=== PATIENT | female | born 1945 | race Caucasian/White ===

== ENCOUNTER 2019-03-02 10:34 | Emergency (ER) | payer MEDICARE, OTHER, MEDICAID ==
[2019-03-02 11:23] LABS: ADD MAN DIFF? NO
[2019-03-02 11:27] LABS: WHITE BLOOD COUNT 6.8 10^3/ul (4.8-10.8)
[2019-03-02 11:27] LABS: BASOPHILS % 0.4 % (0.0-2.0); EOSINOPHILS # 0.1 10^3/ul (0.0-0.5); HEMATOCRIT 37.7 % (37.0-47.0); HEMOGLOBIN 11.9 g/dl (12.0-16.0); LYMPHOCYTES # 1.2 10^3/ul (0.8-2.9); MEAN CORPUSCULAR HEMOGLOBIN 27.5 pg (29.0-33.0); MEAN CORPUSCULAR HGB CONC 31.6 g/dl (32.0-37.0); MEAN CORPUSCULAR VOLUME 87.1 fl (82.0-101.0); MEAN PLATELET VOLUME 10.6 fl (7.4-10.4); MONOCYTE # 0.5 10^3/ul (0.3-0.9); MONOCYTES % 7.2 % (0.0-11.0); NEUTROPHILS % 74.3 % (39.0-77.0); PLATELET COUNT 173 10^3/UL (140-415); RED BLOOD COUNT 4.33 10^6/ul (4.20-5.40); RED CELL DISTRIBUTION WIDTH 14.5 % (11.5-14.5)
[2019-03-02 11:31] LABS: INR 1.06; PROTIME 13.9 Sec (11.9-14.9); PT RATIO 1.1
[2019-03-02 11:32] LABS: ANION GAP 6 (5-13); BLOOD UREA NITROGEN 10 mg/dl (7-20); CALCIUM 8.9 mg/dl (8.4-10.2); CARBON DIOXIDE 27 mmol/L (21-31); CHLORIDE 109 mmol/L (97-110); CREATININE 0.66 mg/dl (0.44-1.00); GLUCOSE 121 mg/dl (70-220); POTASSIUM 4.1 mmol/L (3.5-5.1); SODIUM 142 mmol/L (135-144)
[2019-03-02 11:41] LABS: B-TYPE NATRIURETIC PEPTIDE 4160 PG/ML (0-125)
[2019-03-02 11:44] LABS: TROPONIN-I < 0.012 ng/ml (0.000-0.120)
[2019-03-02] MEDS: FUROSEMIDE 20 MG INJ IV (14:29)
== END 2019-03-02 14:36 | disposition home or self-care (01) ==
LOC: E/R 14:36
DX: I11.0 Hypertensive heart disease with heart failure (principal); I50.9 Heart failure, unspecified; R60.0 Localized edema
CPT/HCPCS: 36415; 71045; 80048; 83880; 84484; 85025; 85610; 93005; 96374; 99285-25

== ENCOUNTER 2019-03-29 14:33 | Inpatient (IN) | payer MEDICARE, OTHER ==
[2019-03-29] MEDS: FAMOTIDINE 20 MG INJ IV (16:22)
[2019-03-29] MEDS: ONDANSETRON 4 MG INJ IV (16:22)
[2019-03-29 16:27] LABS: ADD MAN DIFF? NO
[2019-03-29 16:28] LABS: BASOPHILS % 0.2 % (0.0-2.0); EOSINOPHILS % 0.2 % (0.0-7.0); HEMATOCRIT 37.2 % (37.0-47.0); HEMOGLOBIN 11.8 g/dl (12.0-16.0); LYMPHOCYTES # 1.5 10^3/ul (0.8-2.9); LYMPHOCYTES % 14.8 % (15.0-51.0); MEAN CORPUSCULAR HEMOGLOBIN 26.1 pg (29.0-33.0); MEAN CORPUSCULAR HGB CONC 31.7 g/dl (32.0-37.0); MEAN CORPUSCULAR VOLUME 82.3 fl (82.0-101.0); MEAN PLATELET VOLUME 11.2 fl (7.4-10.4); MONOCYTE # 0.8 10^3/ul (0.3-0.9); MONOCYTES % 7.2 % (0.0-11.0); NEUTROPHILS % 77.3 % (39.0-77.0); PLATELET COUNT 227 10^3/UL (140-415); RED BLOOD COUNT 4.52 10^6/ul (4.20-5.40); RED CELL DISTRIBUTION WIDTH 14.6 % (11.5-14.5)
[2019-03-29 16:28] LABS: WHITE BLOOD COUNT 10.4 10^3/ul (4.8-10.8)
[2019-03-29 16:38] LABS: ALANINE AMINOTRANSFERASE 20 IU/L (13-69); ALBUMIN 3.9 g/dl (3.3-4.9); ALKALINE PHOSPHATASE 116 IU/L (42-121); ANION GAP 12 (5-13); ASPARTATE AMINO TRANSFERASE 27 IU/L (15-46); BILIRUBIN,INDIRECT 0.6 mg/dl (0-1.1); BILIRUBIN,TOTAL 0.6 mg/dl (0.2-1.3); BLOOD UREA NITROGEN 15 mg/dl (7-20); CALCIUM 9.1 mg/dl (8.4-10.2); CARBON DIOXIDE 25 mmol/L (21-31); CHLORIDE 108 mmol/L (97-110); CREATININE 0.66 mg/dl (0.44-1.00); GLUCOSE 102 mg/dl (70-220); LIPASE 34 U/L (23-300); POTASSIUM 4.1 mmol/L (3.5-5.1); SODIUM 145 mmol/L (135-144); TOTAL PROTEIN 7.8 g/dl (6.1-8.1)
[2019-03-29 16:49] LABS: TROPONIN-I < 0.012 ng/ml (0.000-0.120)
[2019-03-29 17:01] LABS: ADD UMIC NO; UR ASCORBIC ACID NEGATIVE (NEGATIVE); UR BILIRUBIN (Dip) NEGATIVE (NEGATIVE); UR BLOOD (Dip) NEGATIVE (NEGATIVE); UR CLARITY CLEAR (CLEAR); UR COLOR YELLOW (YELLOW); UR GLUCOSE (Dip) NEGATIVE (NEGATIVE); UR KETONES (Dip) NEGATIVE (NEGATIVE); UR LEUKOCYTE ESTERASE (Dip) NEGATIVE Leu/ul (NEGATIVE); UR NITRITE (Dip) NEGATIVE (NEGATIVE); UR SPECIFIC GRAVITY (Dip) 1.011 (1.003-1.030); UR TOTAL PROTEIN (Dip) NEGATIVE (NEGATIVE); UR UROBILINOGEN (Dip) NEGATIVE (NEGATIVE)
[2019-03-29] MEDS: IOHEXOL 300MG/ML 150 ML BTL (17:24)
[2019-03-29] MEDS: SOD CHLORIDE 0.9% 100 ML (17:24)
[2019-03-29] MEDS: metroNIDAZOLE 500 MG/NS (PMX) 100 ML IVPB ×2 (19:07→23:18)
[2019-03-29] MEDS: morphine 2 MG INJ IV (19:08)
[2019-03-29] MEDS: SOD CHLORIDE 0.9% 1,000 ML IV (19:15)
[2019-03-29 19:19] LABS: INR 1.03; PROTIME 13.6 Sec (11.9-14.9); PT RATIO 1.1
[2019-03-29 19:20] LABS: PARTIAL THROMBOPLASTIN TIME 32.6 Sec (23.0-35.0)
[2019-03-29] MEDS ORDERED: ONDANSETRON 4 MG INJ IV ×5 (19:30→21:00)
[2019-03-29] MEDS ORDERED: ACETAMINOPHEN 325 MG TAB PO ×3 (19:30→20:00)
[2019-03-29] MEDS: CEFTRIAXONE 2 GM/50 ML (PMX) 50 ML IVPB (19:42)
[2019-03-29] MEDS ORDERED: SOD CHLORIDE 0.9% 1,000 ML IV (19:44)
[2019-03-29] MEDS ORDERED: ROCURONIUM 50 MG INJ (20:00)
[2019-03-29] MEDS ORDERED: morphine 2 MG INJ IV ×2 (20:00)
[2019-03-29] MEDS ORDERED: NACL 0.9% 3 ML SYG IV (20:00)
[2019-03-29] MEDS ORDERED: IBUPROFEN 600 MG TAB PO (20:00)
[2019-03-29] MEDS ORDERED: BISACODYL (EC) 5 MG TAB PO (20:00)
[2019-03-29] MEDS ORDERED: PROPOFOL 20 ML (20:00)
[2019-03-29] MEDS ORDERED: DOCUSATE SODIUM 100 MG CAP PO (20:00)
[2019-03-29] MEDS ORDERED: FENTAnyl 50 MCG/ML VIAL (20:00)
[2019-03-29] MEDS ORDERED: MIDAZOLAM 1 MG/ML 2 ML INJ (20:00)
[2019-03-29] MEDS ORDERED: ROPIVACAINE 0.5 % 30 ML VIAL (20:01)
[2019-03-29] MEDS ORDERED: HYDROmorphONE 1 MG/5 ML IV SYRINGE IV ×6 (20:30→21:00)
[2019-03-29] MEDS ORDERED: DIPHENHYDRAMINE 50 MG INJ IV ×2 (20:30→21:00)
[2019-03-29] MEDS ORDERED: MEPERIDINE 25 MG INJ IV ×2 (20:30→21:00)
[2019-03-29] MEDS ORDERED: FENTAnyl 50 MCG/ML VIAL IV ×6 (20:30→21:00)
[2019-03-29] MEDS ORDERED: LABETALOL HCL 20MG INJ IV ×2 (20:30→21:00)
[2019-03-29] MEDS ORDERED: EPHEDrine 25 MG/5 ML SYG IV ×2 (20:30→21:00)
[2019-03-29] MEDS ORDERED: hydrALAzine 20 MG INJ IV ×2 (20:30→21:00)
[2019-03-29] MEDS ORDERED: METOCLOPRAMIDE 10 MG INJ IV ×2 (20:30→21:00)
[2019-03-29] MEDS ORDERED: DEXAMETHASONE 4 MG/ML 5 ML INJ (21:00)
[2019-03-29] MEDS ORDERED: ONDANSETRON 4 MG INJ (21:00)
[2019-03-29] MEDS ORDERED: METOCLOPRAMIDE 10 MG INJ (21:00)
[2019-03-29] MEDS ORDERED: SUGAMMADEX SODIUM 200 MG/2 ML VIAL IV ×2 (21:03→21:29)
[2019-03-29] MEDS ORDERED: KETOROLAC 30 MG INJ (21:03)
[2019-03-29] MEDS ORDERED: NALOXONE (0.4 MG/ML) INJ (21:24)
[2019-03-29] MEDS ORDERED: FLUMAZENIL 0.5 MG INJ (21:28)
[2019-03-29] MEDS ORDERED: PHENYLephrine (100 MCG/ML) 10ML SYG (22:00)
[2019-03-29] MEDS: D5-NS + KCL 20 MEQ 1,000 ML IV (23:07)
[2019-03-29] MEDS: KETOROLAC 15 MG INJ IV (23:07)
[2019-03-30] MEDS ORDERED: PIPER-TAZO 3.375 GM IV (PMX) 100 ML IVPB
[2019-03-30] MEDS: D5-NS + KCL 20 MEQ 1,000 ML IV ×2 (05:51→13:32)
[2019-03-30] MEDS: metroNIDAZOLE 500 MG/NS (PMX) 100 ML IVPB ×4 (05:57→23:41)
[2019-03-30] MEDS: KETOROLAC 15 MG INJ IV ×2 (05:57→08:00)
[2019-03-30] MEDS: ENOXAPARIN 40 MG/0.4 ML SYG SC (06:03)
[2019-03-30 07:13] LABS: IRON 19 ug/dl (35-150)
[2019-03-30 07:23] LABS: % IRON SATURATION 5 % SAT (22-52); TOTAL IRON BINDING CAPACITY 400 ug/dl (241-421)
[2019-03-30 07:25] LABS: C-REACTIVE PROTEIN 1.8 mg/dl (0.0-0.9)
[2019-03-30 07:52] LABS: FERRITIN 17.5 ng/ml (11.1-264.0)
[2019-03-30 07:57] LABS: ERYTHROCYTE SEDIMENTATION RATE 25 mm/Hr (0-30)
[2019-03-30] MEDS ORDERED: NON-FORMULARY/PATIENT OWN MED (Cyanocobalamin (Vitamin B-12) (Vitamin B-12) 1,000 MCG) PO (09:00)
[2019-03-30] MEDS: LOSARTAN 25 MG TAB PO (09:42)
[2019-03-30] MEDS: CYANOCOBALAMIN 500 MCG TAB PO (09:42)
[2019-03-30] MEDS: SOD FERRIC GLUC COMPLX 125 MG in SOD CHLORIDE 0.9% 100 ML IVPB (13:57)
[2019-03-30] MEDS: CEFTRIAXONE 1 GM/50 ML (PMX) 50 ML IVPB (20:06)
[2019-03-30] MEDS: HYDROCODONE/APAP (5/325) TAB PO (22:25)
[2019-03-31] MEDS: D5-NS + KCL 20 MEQ 1,000 ML IV ×2 (01:51→11:51)
[2019-03-31 05:52] LABS: ADD MAN DIFF? NO
[2019-03-31 05:57] LABS: BASOPHILS % 0.3 % (0.0-2.0); EOSINOPHILS % 0.1 % (0.0-7.0); HEMOGLOBIN 10.6 g/dl (12.0-16.0); LYMPHOCYTES # 1.1 10^3/ul (0.8-2.9); LYMPHOCYTES % 12.2 % (15.0-51.0); MEAN CORPUSCULAR HEMOGLOBIN 26.4 pg (29.0-33.0); MEAN CORPUSCULAR HGB CONC 31.2 g/dl (32.0-37.0); MEAN CORPUSCULAR VOLUME 84.6 fl (82.0-101.0); MEAN PLATELET VOLUME 11.3 fl (7.4-10.4); MONOCYTE # 0.6 10^3/ul (0.3-0.9); MONOCYTES % 7.1 % (0.0-11.0); NEUTROPHIL # 7.2 10^3/ul (1.6-7.5); PLATELET COUNT 180 10^3/UL (140-415); RED BLOOD COUNT 4.02 10^6/ul (4.20-5.40); RED CELL DISTRIBUTION WIDTH 14.8 % (11.5-14.5)
[2019-03-31] MEDS: metroNIDAZOLE 500 MG/NS (PMX) 100 ML IVPB ×2 (06:25→12:00)
[2019-03-31] MEDS: ENOXAPARIN 40 MG/0.4 ML SYG SC (06:28)
[2019-03-31 06:40] LABS: ANION GAP 7 (5-13); BLOOD UREA NITROGEN 17 mg/dl (7-20); CALCIUM 8.3 mg/dl (8.4-10.2); CARBON DIOXIDE 24 mmol/L (21-31); CHLORIDE 111 mmol/L (97-110); CREATININE 0.63 mg/dl (0.44-1.00); GLUCOSE 111 mg/dl (70-220); PHOSPHORUS 3.3 mg/dl (2.5-4.9); POTASSIUM 4.2 mmol/L (3.5-5.1); SODIUM 142 mmol/L (135-144)
[2019-03-31] MEDS: HYDROCODONE/APAP (5/325) TAB PO (06:50)
[2019-03-31] MEDS: LOSARTAN 25 MG TAB PO (09:42)
[2019-03-31] MEDS: CYANOCOBALAMIN 500 MCG TAB PO (09:42)
[2019-03-31 12:07] LABS: PROTEIN, TOTAL 6.6 g/dL (6.1-8.1)
[2019-03-31] MEDS: SOD FERRIC GLUC COMPLX 125 MG in SOD CHLORIDE 0.9% 100 ML IVPB (13:00)
[2019-03-31 15:17] LABS: CREATININE, RANDOM URINE 54 mg/dL (20-275); PROTEIN/CREATININE RATIO 185 mg/g creat (21-161)
[2019-03-31 23:13] LABS: ALBUMIN 3.3 g/dL (3.8-4.8); ALPHA-1-GLOBULINS 0.3 g/dL (0.2-0.3); ALPHA-2-GLOBULINS 0.8 g/dL (0.5-0.9); BETA 2 GLOBULINS 0.4 g/dL (0.2-0.5); BETA GLOBULINS 0.5 g/dL (0.4-0.6); GAMMA GLOBULINS 1.4 g/dL (0.8-1.7)
== END 2019-03-31 17:15 | disposition home or self-care (01) | DRG 343 ==
LOC: E/R 14:33 → MS1 19:11
PROC: 0DTJ4ZZ Resection of Appendix, Percutaneous Endoscopic Approach (ICD-10-PCS; principal; 2019-03-29 20:30)
DX: K35.80 Unspecified acute appendicitis (principal); I10 Essential (primary) hypertension; E66.9 Obesity, unspecified; Z68.35 Body mass index [BMI] 35.0-35.9, adult; D64.9 Anemia, unspecified; L98.8 Other specified disorders of the skin and subcutaneous tissue
CPT/HCPCS: 36415; 71045; 73030-RT; 73060-RT; 74177; 80048; 80053; 81003; 82570; 82728; 83540; 83690; 83735; 84100; 84155; 84156; 84165; 84166; 84484; 85025; 85610; 85651; 85730; 86140; 88304; 93005; 96374; 96375; 99285-25

== ENCOUNTER 2019-05-09 15:29 | Inpatient (IN) | payer MEDICARE, OTHER ==
[2019-05-09 16:25] LABS: ADD MAN DIFF? NO
[2019-05-09 16:29] LABS: BASOPHILS % 0.5 % (0.0-2.0); EOSINOPHILS # 0.2 10^3/ul (0.0-0.5); EOSINOPHILS % 2.1 % (0.0-7.0); HEMATOCRIT 35.6 % (37.0-47.0); HEMOGLOBIN 11.1 g/dl (12.0-16.0); LYMPHOCYTES # 1.4 10^3/ul (0.8-2.9); LYMPHOCYTES % 18.2 % (15.0-51.0); MEAN CORPUSCULAR HEMOGLOBIN 25.4 pg (29.0-33.0); MEAN CORPUSCULAR HGB CONC 31.2 g/dl (32.0-37.0); MEAN CORPUSCULAR VOLUME 81.5 fl (82.0-101.0); MEAN PLATELET VOLUME 9.9 fl (7.4-10.4); MONOCYTE # 0.6 10^3/ul (0.3-0.9); MONOCYTES % 7.7 % (0.0-11.0); NEUTROPHIL # 5.5 10^3/ul (1.6-7.5); NEUTROPHILS % 71.2 % (39.0-77.0); PLATELET COUNT 205 10^3/UL (140-415); RED BLOOD COUNT 4.37 10^6/ul (4.20-5.40); RED CELL DISTRIBUTION WIDTH 16.6 % (11.5-14.5)
[2019-05-09 16:29] LABS: WHITE BLOOD COUNT 7.8 10^3/ul (4.8-10.8)
[2019-05-09 16:49] LABS: ALANINE AMINOTRANSFERASE 27 IU/L (13-69); ALBUMIN 3.9 g/dl (3.3-4.9); ALBUMIN/GLOBULIN RATIO 1.14; ALKALINE PHOSPHATASE 102 IU/L (42-121); ANION GAP 11 (5-13); ASPARTATE AMINO TRANSFERASE 27 IU/L (15-46); BILIRUBIN,INDIRECT 0.7 mg/dl (0-1.1); BILIRUBIN,TOTAL 0.7 mg/dl (0.2-1.3); BLOOD UREA NITROGEN 13 mg/dl (7-20); CALCIUM 8.9 mg/dl (8.4-10.2); CARBON DIOXIDE 24 mmol/L (21-31); CHLORIDE 105 mmol/L (97-110); CREATININE 0.77 mg/dl (0.44-1.00); GLUCOSE 91 mg/dl (70-220); SODIUM 140 mmol/L (135-144); TOTAL PROTEIN 7.3 g/dl (6.1-8.1)
[2019-05-09 18:33] LABS: TROPONIN-I 0.034 ng/ml (0.000-0.120)
[2019-05-09 18:33] LABS: B-TYPE NATRIURETIC PEPTIDE 7000 PG/ML (0-450)
[2019-05-09] MEDS ORDERED: NITROGLYCERIN (SL) 0.4 MG TAB SL (20:00)
[2019-05-09] MEDS ORDERED: NACL 0.9% 3 ML SYG IV (20:00)
[2019-05-09] MEDS ORDERED: DOCUSATE SODIUM 100 MG CAP PO (20:00)
[2019-05-09] MEDS ORDERED: ACETAMINOPHEN 325 MG TAB PO (20:00)
[2019-05-09] MEDS ORDERED: BISACODYL (EC) 5 MG TAB PO (20:00)
[2019-05-09] MEDS ORDERED: ONDANSETRON 4 MG INJ IV ×2 (20:00)
[2019-05-09] MEDS: FUROSEMIDE 40 MG INJ IV (20:11)
[2019-05-09] MEDS: ASPIRIN 81 MG TAB PO (20:11)
[2019-05-09] MEDS: NITROGLYCERIN 2% 1 GM OINT PKT TD (20:11)
[2019-05-09] MEDS: HEPARIN 5,000 UNIT/1 ML VIAL SC (22:02)
[2019-05-10 01:15] LABS: CREATINE KINASE 28 IU/L (23-200)
[2019-05-10 01:29] LABS: CK INDEX 2.4; CK-MB 0.68 ng/ml (0.0-2.4); TROPONIN-I 0.036 ng/ml (0.000-0.120)
[2019-05-10 05:39] LABS: ADD MAN DIFF? NO
[2019-05-10 05:49] LABS: WHITE BLOOD COUNT 7.2 10^3/ul (4.8-10.8)
[2019-05-10 05:49] LABS: BASOPHIL # 0.1 10^3/ul (0.0-0.1); BASOPHILS % 0.7 % (0.0-2.0); EOSINOPHILS # 0.2 10^3/ul (0.0-0.5); EOSINOPHILS % 3.1 % (0.0-7.0); HEMATOCRIT 36.1 % (37.0-47.0); HEMOGLOBIN 11.2 g/dl (12.0-16.0); LYMPHOCYTES # 1.4 10^3/ul (0.8-2.9); LYMPHOCYTES % 19.9 % (15.0-51.0); MEAN CORPUSCULAR HEMOGLOBIN 24.8 pg (29.0-33.0); MEAN CORPUSCULAR VOLUME 79.9 fl (82.0-101.0); MEAN PLATELET VOLUME 10.4 fl (7.4-10.4); MONOCYTE # 0.6 10^3/ul (0.3-0.9); MONOCYTES % 8.4 % (0.0-11.0); NEUTROPHIL # 4.8 10^3/ul (1.6-7.5); NEUTROPHILS % 67.6 % (39.0-77.0); PLATELET COUNT 211 10^3/UL (140-415); RED BLOOD COUNT 4.52 10^6/ul (4.20-5.40); RED CELL DISTRIBUTION WIDTH 16.5 % (11.5-14.5)
[2019-05-10 06:08] LABS: ALANINE AMINOTRANSFERASE 27 IU/L (13-69); ALBUMIN 3.3 g/dl (3.3-4.9); ALKALINE PHOSPHATASE 102 IU/L (42-121); ANION GAP 9 (5-13); ASPARTATE AMINO TRANSFERASE 27 IU/L (15-46); BILIRUBIN,INDIRECT 0.9 mg/dl (0-1.1); BILIRUBIN,TOTAL 0.9 mg/dl (0.2-1.3); BLOOD UREA NITROGEN 11 mg/dl (7-20); CALCIUM 8.9 mg/dl (8.4-10.2); CARBON DIOXIDE 29 mmol/L (21-31); CHLORIDE 103 mmol/L (97-110); CHOL/HDL RATIO 4.5 RATIO; CHOLESTEROL 105 mg/dl (100-200); GLUCOSE 94 mg/dl (70-220); HDL CHOLESTEROL 23 mg/dl (33-92); LDL CHOLESTEROL,CALCULATED 64 mg/dl; MAGNESIUM 1.9 mg/dl (1.7-2.5); POTASSIUM 3.7 mmol/L (3.5-5.1); SODIUM 141 mmol/L (135-144); TOTAL PROTEIN 6.6 g/dl (6.1-8.1); TRIGLYCERIDES 88 mg/dl (0-149)
[2019-05-10 06:10] LABS: CREATINE KINASE 26 IU/L (23-200)
[2019-05-10 06:19] LABS: CK INDEX 2.4; CK-MB 0.63 ng/ml (0.0-2.4); TROPONIN-I 0.046 ng/ml (0.000-0.120)
[2019-05-10] MEDS: ACETAMINOPHEN 325 MG TAB PO ×2 (06:19→20:22)
[2019-05-10] MEDS: FUROSEMIDE 20 MG INJ IV ×2 (06:20→17:31)
[2019-05-10] MEDS: HEPARIN 5,000 UNIT/1 ML VIAL SC ×3 (06:25→21:46)
[2019-05-10 07:14] LABS: HEMOGLOBIN A1C 5.7 % (0-5.9)
[2019-05-10] MEDS: FERROUS SULFATE (EC) 325 MG TAB PO (08:13)
[2019-05-10] MEDS: CYANOCOBALAMIN 500 MCG TAB PO (08:13)
[2019-05-10] MEDS: LOSARTAN 25 MG TAB PO (08:14)
[2019-05-10] MEDS ORDERED: NON-FORMULARY/PATIENT OWN MED (Cyanocobalamin (Vitamin B-12) (Vitamin B-12) 1,000 MCG) PO (09:00)
[2019-05-10 11:23] LABS: IRON 139 ug/dl (35-150)
[2019-05-10 11:32] LABS: % IRON SATURATION 32 % SAT (22-52); TOTAL IRON BINDING CAPACITY 437 ug/dl (241-421)
[2019-05-10 11:58] LABS: FERRITIN 20.2 ng/ml (11.1-264.0)
[2019-05-10] MEDS: ALBUTEROL/IPRATROPIUM (NEB) 3 ML AMP HHN ×3 (13:40→20:53)
[2019-05-11] MEDS: ALBUTEROL/IPRATROPIUM (NEB) 3 ML AMP HHN ×6 (01:12→20:36)
[2019-05-11 06:49] LABS: ANION GAP 9 (5-13); BLOOD UREA NITROGEN 11 mg/dl (7-20); CALCIUM 8.7 mg/dl (8.4-10.2); CARBON DIOXIDE 30 mmol/L (21-31); CHLORIDE 101 mmol/L (97-110); CREATININE 0.64 mg/dl (0.44-1.00); GLUCOSE 114 mg/dl (70-220); SODIUM 140 mmol/L (135-144)
[2019-05-11] MEDS: FUROSEMIDE 20 MG INJ IV ×2 (06:55→18:31)
[2019-05-11] MEDS: HEPARIN 5,000 UNIT/1 ML VIAL SC ×3 (06:58→22:08)
[2019-05-11 07:14] LABS: POTASSIUM 3.1 mmol/L (3.5-5.1)
[2019-05-11] MEDS: FERROUS SULFATE (EC) 325 MG TAB PO (08:21)
[2019-05-11] MEDS: CYANOCOBALAMIN 500 MCG TAB PO (08:21)
[2019-05-11] MEDS: LOSARTAN 25 MG TAB PO (08:22)
[2019-05-11] MEDS ORDERED: SOD FERRIC GLUC COMPLX 125 MG in SOD CHLORIDE 0.9% 100 ML IVPB (10:00)
[2019-05-11] MEDS: ASPIRIN 81 MG TAB PO (10:22)
[2019-05-11] MEDS: POTASSIUM CHLORIDE (SR) 20 MEQ TAB PO ×2 (10:22→14:02)
[2019-05-11] MEDS: SOD FERRIC GLUC COMPLX 125 MG in SOD CHLORIDE 0.9% 100 ML IVPB (12:52)
[2019-05-11] MEDS: SPIRONOLACTONE 25 MG TAB PO (16:14)
[2019-05-12] MEDS: ALBUTEROL/IPRATROPIUM (NEB) 3 ML AMP HHN ×6 (01:12→21:14)
[2019-05-12] MEDS: FUROSEMIDE 20 MG INJ IV ×2 (05:45→18:03)
[2019-05-12] MEDS: HEPARIN 5,000 UNIT/1 ML VIAL SC ×3 (05:50→21:26)
[2019-05-12 06:12] LABS: ALANINE AMINOTRANSFERASE 21 IU/L (13-69); ALBUMIN 3.9 g/dl (3.3-4.9); ALBUMIN/GLOBULIN RATIO 1.11; ALKALINE PHOSPHATASE 108 IU/L (42-121); ANION GAP 9 (5-13); ASPARTATE AMINO TRANSFERASE 26 IU/L (15-46); BILIRUBIN,INDIRECT 0.7 mg/dl (0-1.1); BILIRUBIN,TOTAL 0.7 mg/dl (0.2-1.3); BLOOD UREA NITROGEN 12 mg/dl (7-20); CALCIUM 9.2 mg/dl (8.4-10.2); CARBON DIOXIDE 28 mmol/L (21-31); CHLORIDE 102 mmol/L (97-110); CREATININE 0.65 mg/dl (0.44-1.00); GLUCOSE 106 mg/dl (70-220); POTASSIUM 4.3 mmol/L (3.5-5.1); SODIUM 139 mmol/L (135-144); TOTAL PROTEIN 7.4 g/dl (6.1-8.1)
[2019-05-12 06:16] LABS: B-TYPE NATRIURETIC PEPTIDE 2080 PG/ML (0-450)
[2019-05-12] MEDS: FERROUS SULFATE (EC) 325 MG TAB PO (10:36)
[2019-05-12] MEDS: CYANOCOBALAMIN 500 MCG TAB PO (10:36)
[2019-05-12] MEDS: ASPIRIN 81 MG TAB PO (10:36)
[2019-05-12] MEDS: LOSARTAN 25 MG TAB PO (10:37)
[2019-05-12] MEDS: SPIRONOLACTONE 25 MG TAB PO (10:37)
[2019-05-12] MEDS: SOD FERRIC GLUC COMPLX 125 MG in SOD CHLORIDE 0.9% 100 ML IVPB (13:16)
[2019-05-13] MEDS: ALBUTEROL/IPRATROPIUM (NEB) 3 ML AMP HHN ×4 (01:07→13:19)
[2019-05-13] MEDS: HEPARIN 5,000 UNIT/1 ML VIAL SC ×2 (05:21→13:42)
[2019-05-13 06:30] LABS: CHOLESTEROL 133 mg/dl (100-200)
[2019-05-13 06:30] LABS: CHOL/HDL RATIO 4.2 RATIO; HDL CHOLESTEROL 31 mg/dl (33-92); LDL CHOLESTEROL,CALCULATED 79 mg/dl; TRIGLYCERIDES 113 mg/dl (0-149)
[2019-05-13 06:32] LABS: B-TYPE NATRIURETIC PEPTIDE 1540 PG/ML (0-450)
[2019-05-13 06:33] LABS: ANION GAP 10 (5-13); BLOOD UREA NITROGEN 18 mg/dl (7-20); CALCIUM 9.3 mg/dl (8.4-10.2); CARBON DIOXIDE 28 mmol/L (21-31); CHLORIDE 100 mmol/L (97-110); CREATININE 0.65 mg/dl (0.44-1.00); GLUCOSE 102 mg/dl (70-220); MAGNESIUM 2.2 mg/dl (1.7-2.5); POTASSIUM 4.8 mmol/L (3.5-5.1); SODIUM 138 mmol/L (135-144)
[2019-05-13] MEDS: CYANOCOBALAMIN 500 MCG TAB PO (09:37)
[2019-05-13] MEDS: LOSARTAN 25 MG TAB PO (09:37)
[2019-05-13] MEDS: FERROUS SULFATE (EC) 325 MG TAB PO (09:37)
[2019-05-13] MEDS: SPIRONOLACTONE 25 MG TAB PO (09:37)
[2019-05-13] MEDS: FUROSEMIDE 40 MG TAB PO (09:37)
[2019-05-13] MEDS: ASPIRIN 81 MG TAB PO (09:37)
[2019-05-13] MEDS: SOD FERRIC GLUC COMPLX 125 MG in SOD CHLORIDE 0.9% 100 ML IVPB (13:39)
== END 2019-05-13 16:20 | disposition home or self-care (01) | DRG 291 ==
LOC: E/R 15:29 → 6WM 20:52
PROVIDERS: Family Medicine
DX: I11.0 Hypertensive heart disease with heart failure (principal); I50.21 Acute systolic (congestive) heart failure; E66.9 Obesity, unspecified; Z68.37 Body mass index [BMI] 37.0-37.9, adult; E87.6 Hypokalemia; D50.9 Iron deficiency anemia, unspecified; M89.9 Disorder of bone, unspecified; Z91.14 Patient's other noncompliance with medication regimen
CPT/HCPCS: 36415; 71045; 76604; 80048; 80053; 80061; 82550; 82553; 82728; 83036; 83540; 83735; 83880; 84443; 84484; 85025; 93005; 93306; 93970; 94640; 94664; 99217; 99285-25; G0378